=== PATIENT | female | born 1980 | race Two or more races ===

== ENCOUNTER 2019-04-20 15:37 | Inpatient (IN) | payer OTHER ==
[~2019-04-20] VITALS: Ht 160 cm; Wt 147.0 kg
[2019-04-20] MEDS ORDERED: DEXT 5%/LR + PITOCIN 20UNITS/L 1,000 ML IV SCH ×2 (16:31→22:03)
[2019-04-20] MEDS ORDERED: LACTATED RINGERS 1,000 ML IV SCH (16:31)
[2019-04-20] MEDS ORDERED: CARBOPROST TROMETHAMINE 250 MCG/ML AMPUL IM PRN (16:45)
[2019-04-20] MEDS ORDERED: NALOXONE HCL 0.4 MG/ML 1ML VIAL IM PRN (16:45)
[2019-04-20] MEDS ORDERED: CITRIC ACID/SODIUM CITRATE SOLN 30ML UDC PO NR (16:45)
[2019-04-20] MEDS ORDERED: METHYLERGONOVINE MALEATE 0.2 MG/ML IM PRN (16:45)
[2019-04-20] MEDS ORDERED: FENTANYL CITRATE/PF 50MCG/ML 2ML VIAL ONE (16:50)
[2019-04-20] MEDS ORDERED: MORPHINE SULFATE/PF 1MG/ML 10ML AMP ONE (16:50)
[2019-04-20] MEDS ORDERED: CEFAZOLIN SODIUM 1000MG/VIAL ONE (16:51)
[2019-04-20] MEDS ORDERED: OXYTOCIN 10 UNITS/ML 1ML ONE (16:51)
[2019-04-20] MEDS ORDERED: ONDANSETRON HCL 4MG/2ML INJ ONE ×2 (16:51→21:44)
[2019-04-20 17:30] LABS: CLARITY URINE CLEAR (CLEAR); COLOR URINE DARK YELLOW (YELLOW); KETONES URINE TRACE (NEGATIVE); LEUKOCYTE ESTERASE URINE TRACE (NEGATIVE); NITRITE URINE NEGATIVE (NEGATIVE); OCCULT BLOOD URINE 2+ (NEGATIVE); PH URINE 5.5 (4.5-8.0); PROTEIN URINE TRACE (NEGATIVE); SPECIFIC GRAVITY URINE 1.029 (1.005-1.030)
[2019-04-20 17:32] LABS: BASOPHILS % 0.2 % (0.0-2.0); EOSINOPHILS % 0.6 % (0.0-5.0); HEMOGLOBIN. 11.4 g/dL (12.0-16.0); LYMPHOCYTES % 12.8 % (20.0-50.0); MEAN CORPUSCULAR HEMOGLOBIN 28.9 pg (28.0-32.0); MEAN CORPUSCULAR VOLUME 86.6 fL (81.0-99.0); MEAN PLATELET VOLUME 9.8 fl (7.4-10.4); MONOCYTES % 5.7 % (2.0-8.0); NEUTROPHILS % 80.7 % (40.0-76.0); PLATELET 213 x1000/uL (130-400); RED BLOOD CELL COUNT 3.93 mill/uL (4.2-5.4); RED CELL DISTRIBUTION WIDTH 15.2 % (11.6-14.6)
[2019-04-20 17:41] LABS: INR 0.9; PARTIAL THROMBOPLASTIN TIME 28.4 sec (23.4-31.0); PROTHROMBIN TIME 9.4 sec (9.6-11.0)
[2019-04-20 17:42] LABS: *AMPHETAMINES SCREEN URINE NEGATIVE (NEGATIVE)
[2019-04-20 17:43] LABS: *BARBITURATES SCREEN URINE NEGATIVE (NEGATIVE); *BENZODIAZEPINES SCREEN URINE NEGATIVE (NEGATIVE); *COCAINE SCREEN URINE NEGATIVE (NEGATIVE); METHADONE URINE SCREEN NEGATIVE (NEGATIVE); OPIATES URINE SCREEN NEGATIVE (NEGATIVE)
[2019-04-20 17:44] LABS: CANNABINOID URINE SCREEN NEGATIVE (NEGATIVE); PHENCYCLIDINE URINE SCREEN NEGATIVE (NEGATIVE)
[2019-04-20 18:20] LABS: HEPATITIS B SURFACE ANTIGEN REACTIVE PEND CONFIR
[2019-04-20] MEDS ORDERED: GLYCOPYRROLATE 0.2 MG/ML 2ML VIAL ONE (20:05)
[2019-04-20] MEDS ORDERED: EPHEDRINE SULFATE 50MG/ML VIAL ONE (20:05)
[2019-04-20] MEDS ORDERED: BUTORPHANOL TARTRATE 2 MG/ML VIAL IV PRN (20:30)
[2019-04-20] MEDS ORDERED: NALOXONE HCL 0.4 MG/ML 1ML VIAL IV PRN (20:30)
[2019-04-20] MEDS ORDERED: DIPHENHYDRAMINE 50MG/ML VIAL IV PRN (20:30)
[2019-04-20] MEDS ORDERED: KETOROLAC 60MG/2ML VIAL IM ONE (20:34)
[2019-04-20] MEDS ORDERED: ONDANSETRON HCL 4MG/2ML INJ IV PRN ×2 (21:45→22:15)
[2019-04-20] MEDS ORDERED: RHO(D) IMMUNE GLOBULIN 300 MCG/SYR IM PRN (22:15)
[2019-04-20] MEDS ORDERED: LANOLIN OINT 7GM TUBE TOP PRN (22:15)
[2019-04-20 23:15] VITALS: BP 117/62
[2019-04-21 00:30] VITALS: BP 115/65
[2019-04-21] MEDS: METOCLOPRAMIDE HCL 10MG/2ML VIAL IV PRN ×2 (00:54→09:24)
[2019-04-21] MEDS: KETOROLAC 30MG/ML VIAL IV SCH ×2 (02:34→09:25)
[2019-04-21 06:00] VITALS: BP 119/66
[2019-04-21 07:12] LABS: BASOPHILS % 0.1 % (0.0-2.0); EOSINOPHILS % 0.1 % (0.0-5.0); HEMATOCRIT. 28.7 % (36.0-48.0); HEMOGLOBIN. 9.4 g/dL (12.0-16.0); MEAN CORPUSCULAR HEMOGLOBIN 28.7 pg (28.0-32.0); MEAN CORPUSCULAR VOLUME 87.8 fL (81.0-99.0); MEAN PLATELET VOLUME 9.2 fl (7.4-10.4); MONOCYTES % 7.1 % (2.0-8.0); NEUTROPHILS % 84.7 % (40.0-76.0); PLATELET 166 x1000/uL (130-400); RED BLOOD CELL COUNT 3.26 mill/uL (4.2-5.4); RED CELL DISTRIBUTION WIDTH 15.5 % (11.6-14.6)
[2019-04-21 08:00] VITALS: BP 112/65
[2019-04-21] MEDS: PRENATAL VIT/FE FUMARATE/FA TABLET PO SCH (09:24)
[2019-04-21 16:00] VITALS: BP 116/66
[2019-04-21] MEDS: IBUPROFEN 400MG TABLET PO PRN (18:22)
[2019-04-21] MEDS: DOCUSATE SODIUM 100MG CAPSULE PO SCH (21:30)
[2019-04-21] MEDS: IBUPROFEN 800MG TABLET PO PRN (21:32)
[2019-04-21 22:56] VITALS: BP 128/72
[2019-04-22] MEDS: IBUPROFEN 400MG TABLET PO PRN (00:18)
[2019-04-22] MEDS: HYDROCODONE/ACETAMINOPHEN 5/325MG TABLET PO PRN ×3 (01:31→21:04)
[2019-04-22 04:00] VITALS: BP 134/68
[2019-04-22] MEDS: IBUPROFEN 800MG TABLET PO PRN ×2 (06:31→17:23)
[2019-04-22 08:00] VITALS: BP 104/65
[2019-04-22] MEDS: PRENATAL VIT/FE FUMARATE/FA TABLET PO SCH (09:35)
[2019-04-22 15:59] VITALS: BP 122/75
[2019-04-22] MEDS: DOCUSATE SODIUM 100MG CAPSULE PO SCH (21:03)
[2019-04-22 22:00] VITALS: BP 128/70
[2019-04-23] MEDS: HYDROCODONE/ACETAMINOPHEN 5/325MG TABLET PO PRN ×2 (02:23→06:40)
[2019-04-23 04:00] VITALS: BP 124/64
[2019-04-23] MEDS ORDERED: TETANUS, DIPHTHERIA, PERTUSSIS VAC/PF 0.5ML (>7YR OLD) IM ONE (06:00)
[2019-04-23] MEDS: IBUPROFEN 800MG TABLET PO PRN (06:45)
[2019-04-23 07:45] VITALS: BP 111/77
[2019-04-23] MEDS: PRENATAL VIT/FE FUMARATE/FA TABLET PO SCH (08:49)
[2019-04-23 13:16] LABS: HBSAG CONFIRMATION Positive (.); HBSAG SCREEN Confirm. indicated (Negative)
== END 2019-04-23 12:10 | disposition home or self-care (01) | DRG 540 ==
LOC: 8 EST LDRP 15:37 → 8EST 23:00
PROVIDERS: ADMIT Obstetrics & Gynecology; ATTEND Obstetrics & Gynecology
PROC: 10D00Z1 Extraction of Products of Conception, Low, Open Approach (ICD-10-PCS; principal; 2019-04-20)
PROC: 10D00Z1 Extraction of Products of Conception, Low, Open Approach (ICD-10-PCS; 2019-04-20)
PROC: 0UT70ZZ Resection of Bilateral Fallopian Tubes, Open Approach (ICD-10-PCS; 2019-04-20)
DX: O34.211 Maternal care for low transverse scar from previous cesarean delivery (principal); D62 Acute posthemorrhagic anemia; E66.9 Obesity, unspecified; Z37.0 Single live birth; Z3A.38 38 weeks gestation of pregnancy; O99.214 Obesity complicating childbirth; O32.1XX0 Maternal care for breech presentation, not applicable or unspecified; B18.1 Chronic viral hepatitis B without delta-agent; Z30.2 Encounter for sterilization; O90.81 Anemia of the puerperium
CPT/HCPCS: 36415; 80305; 81003; 86592; 86703; 86762; 86850; 86900; 87340; 88302; 88307; 90715; J0690; J1885; J2274; J2405; J2590; J2765; J3010; J3490